=== PATIENT | male | born 1965 | race Hispanic/Latino ===

== ENCOUNTER 2021-11-03 08:40 | Emergency (ER) | payer SELFPAY ==
[2021-11-03] MEDS ORDERED: KETOROLAC 30 MG/ML INJ ONE (10:19)
[2021-11-03] MEDS ORDERED: DIAZEPAM 5 MG TABLET ONE (10:20)
--- NOTE | 2021-11-03 10:51 | RAD REPORT ---
EXAM DESCRIPTION: RAD - Ribs Right - 11/03/2021 10:43 am CLINICAL HISTORY: injury, pain COMPARISON: No comparisons FINDINGS: Mildly displaced right tenth rib fracture. Nondisplaced right eleventh rib fracture. No pn eumothorax is appreciated. IMPRESSION: Mildly displaced right tenth and nondisplaced right eleventh rib fracture. No pneumothor ax.
--- NOTE | 2021-11-03 11:11 | ER ---
Nurse's Notes [facility] Name: Broderick Bliss Age: 56 yrs Sex: Male : 1965 Arrival Date: 11/03/2021 Time: 08:41 Bed 9 Private MD: Diagnosis: Rib Fracture Presentation: 11/03 10:00 Chief complaint: Patient states: hit right side against a pool on Wednesday and he iw sneezed this morning and felt something and now he hurts. Coronavirus screen: At this time, the client does not indicate any symptoms associated with coronavirus-19. Ebola Screen: Patient negative for fever greater than or equal to 101.5 degrees Fahrenheit, and additional compatible Ebola Virus Disease symptoms Patient denies exposure to infectious person. Patient denies travel to an Ebola-affected area in the 21 days before illness onset. No symptoms or risks identified at this time. Initial Sepsis Screen: Does the patient meet any 2 criteria? No. Patient's initial sepsis screen is negative. Does the patient have a suspected source of infection? No. Patient's initial sepsis screen is negative. Risk Assessment: Do you want to hurt yourself or someone else? Patient reports no desire to harm self or others. Onset of symptoms was November 01, 2021. 10:00 Method Of Arrival: Ambulatory iw 10:00 Acuity: VICTORINO 4 iw Vital Signs: 11:16 BP 139 / 99; Pulse 72; Resp 18; Temp 97.9(O); Pulse Ox 96% on R/A; mh5 ED Course: 08:41 Patient arrived in ED. am2 09:40 Clay Enciso PA is PHCP. [facility] 09:40 Tomás Herrera MD is Attending Physician. [facility] 10:01 Triage completed. iw 10:01 Arm band placed on Patient placed. iw 10:13 Aura Bower, RN is Primary Nurse. iw 10:45 Ribs Right XRAY In Process Unspecified. EDMS Administered Medications: 10:19 Drug: Ketorolac 30 mg Route: IM; Site: right deltoid; iw 10:19 Drug: Valium (diazepam) 5 mg Route: PO; iw Outcome: 11:10 Discharge ordered by . danielle 11:29 Patient left the ED. iw Signatures: Dispatcher [employer] EDMS Clay Enciso PA PA jmm Williams, Irene, RN RN Katelynn Whiteside [facility] Maggie Steiner [facility]
--- NOTE | 2021-11-03 11:11 | EDPHYS ---
Physician Documentation [facility] Name: Broderick Bliss Age: 56 yrs Sex: Male : 1965 Arrival Date: 11/03/2021 Time: 08:41 Bed 9 Private MD: ED Physician Tomás Herrera HPI: 11/03 09:59 This 56 yrs old Male presents to ER via Ambulatory with complaints of rib pain.[facility] 09:59 The patient or guardian reports chest pain that is located primarily in the right [facility] lateral posterior chest. Onset: The symptoms/episode began/occurred acutely, 2 day(s) ago. The pain does not radiate. This is a 56-year-old male that presents emerged part with right-sided rib pain beginning after he hit the side of his chest wall against the edge of the pool. Patient states he had a sneeze prior to going to work and developed acute onset pain. Denies shortness of breath.. ROS: 09:59 Constitutional: Negative for fever, chills, and weight loss, Cardiovascular: Negative jm for chest pain, palpitations, and edema, Respiratory: Negative for shortness of breath, cough, wheezing, and pleuritic chest pain. 09:59 Back: Positive for pain with movement. 09:59 All other systems are negative. Exam: 09:59 Constitutional: This is a well developed, well nourished patient who is awake, alert, jmm and in no acute distress. Head/Face: atraumatic. Eyes: EOMI, no conjunctival erythema appreciated ENT: Moist Mucus Membranes Neck: Trachea midline, Supple Chest/axilla: Normal chest wall appearance and motion. Cardiovascular: Regular rate and rhythm. No edema appreciated Respiratory: Normal respirations, no respiratory distress appreciated Abdomen/GI: Non distended, soft 09:59 Skin: General appearance color normal MS/ Extremity: Moves all extremities, no obvious deformities appreciated, no edema noted to the lower extremities Neuro: Awake and alert Psych: Behavior is normal, Mood is normal, Patient is cooperative and pleasant 09:59 Back: Right posterior lateral rib pain on palpation. Vital Signs: 11:16 BP 139 / 99; Pulse 72; Resp 18; Temp 97.9(O); Pulse Ox 96% on R/A; mh5 MDM: 09:48 Patient medically screened. [facility] 11:10 Data reviewed: vital signs, nurses notes. Counseling: I had a detailed discussion with [facility] the patient and/or guardian regarding: the historical points, exam findings, and any diagnostic results supporting the discharge/admit diagnosis, radiology results, the need for outpatient follow up, to return to the emergency department if symptoms worsen or persist or if there are any questions or concerns that arise at home. 11/03 09:50 Order name: Ribs Right XRAY; Complete Time: 10:56 [facility] 11/03 11:05 Order name: INCENTIVE SPIROMETRY [facility] Administered Medications: 10:19 Drug: Ketorolac 30 mg Route: IM; Site: right deltoid; iw 10:19 Drug: Valium (diazepam) 5 mg Route: PO; iw Disposition Summary: 11/03/21 11:10 Discharge Ordered Location: Home [facility] Condition: Stable [facility] Diagnosis - Rib Fracture [facility] Followup: [facility] - With: Private Physician - When: 2 - 3 days - Reason: Recheck today's complaints, Continuance of care, Re-evaluation by your physician Discharge Instructions: - Discharge Summary Sheet [facility] - Rib Fracture [facility] - How to Use an Incentive Spirometer [facility] Forms: - Work release form [facility] - Medication Reconciliation Form [facility] - Thank You Letter [facility] - Antibiotic Education [facility] - Prescription Opioid Use [facility] Prescriptions: - Zanaflex 4 mg Oral Tablet - take 1 tablet by ORAL route every 8 hours As needed; 20 tablet; Refills: 0, [facility] Product Selection Permitted - Tylenol-Codeine #3 300 mg-30 mg Oral - take 1 tablet by ORAL route every 4-6 hours; 20 tablet; Refills: 0, Product [facility] Selection Permitted Signatures: Dispatcher [employer] Clay Adkins PA PA jmm Williams, Irene, RN RN iw
[2021-11-03 12:14] VITALS: BP 139/99; TEMP 97.9; O2SAT 96
== END 2021-11-03 11:29 | disposition home or self-care (01) ==
LOC: ER 08:40
DX: S22.41XA Multiple fractures of ribs, right side, initial encounter for closed fracture (principal)
CPT/HCPCS: 96372; 99283

== ENCOUNTER 2024-04-03 17:53 | Emergency (ER) | payer BC ==
--- OUTSIDE RECORDS SUMMARY | 2024-04-03 17:55 | XMS REPORT | Continuity of Care Document ---
Author Name Unknown Address [address] [place] [address] [facility] thconnect Address [address] [place] [address] Care Team Providers Care Field Contractor Name Role Phone Corinne Olson Attending Clinician Unavail able Payers Payer Name Policy Type Policy Number Effective Date Expirati on Date Source [facility] 6 [id number] 2022 00:00:00 [facility] Problems Condition Name Condition Details Condition Category Status Onset Date Resolution Date Last Treatment Date Treating Clinician Comments Source [id number] Mixed hyperlipid emia Problem [facility] [id number] Body mass index [BMI] 31.0-31.9, adult Problem [facility] [id number] Essential hypertensi on Problem [facility] [id number] Gastroesop hageal reflux disease without esophagiti s Problem [facility] [id number] Chronic fatigue Problem [facility] [id number] Vitamin D deficiency Problem [facility] [id number] PONCE (obstructi ve sleep apnea) Problem [facility] [id number] Other obesity due to excess calories Problem [facility] Social History Social Habit Start Date Stop Date Quantity Comments Source Sex Assigned At [facility] History of Tobacco Use [facility] Smoking Status Start Date Stop Date Source Former Smoker 2024-03-31 00:00:00 2024-03-31 00:00:00 [facility] Medications Ordered Medication Name Filled Medication Name Start Date Stop Date Current Medication? Ordering Clinician Indication Dosage Frequency Signature (SIG) Comments Components Source Atorvastati n Calcium 20 MG Atorvastati n Calcium 20 MG 12-30 00:00: 00 No 1{table t} QD Atorvastat in Calcium 20 MG Pantoprazol e Sodium 40 MG Pantoprazol e Sodium 40 MG 12-30 00:00: 00 No 1{table t} QD Pantoprazo le Sodium 40 MG Olmesartan Medoxomil 5 MG Olmesartan Medoxomil 5 MG 12-30 00:00: 00 No 2{table ts} QD Olmesartan Medoxomil 5 MG Albuterol Sulfate HFA 108 (90 Base) MCG/ACT Albuterol Sulfate HFA 108 (90 Base) MCG/ACT 10-28 00:00: 00 No 1{puff_ as_need ed} 6xD Albuterol Sulfate HFA 108 (90 Base) MCG/ACT PriLOSEC PriLOSEC No PriLOSEC Vital Signs Vital Name Observation Time Observation Value Comments S ource oximetry 2024-03-31 08:00:00 96 % Commo n [facility] respiratory rate 2024-03-31 08:00:00 16 /min [facility] blood pressure systolic 2024-03-31 08:00:00 148 mm[Hg] [facility] blood pressure diastolic 2024-03-31 08:00:00 90 mm[Hg] [facility] height 2024-03-31 08:00:00 66 [in_i] Commo n [facility] weight 2024-03-31 08:00:00 191.4 [lb_av] Co mmon [facility] temperature 2024-03-31 08:00:00 97.3 [degF] Com mon [facility] bmi 2024-03-31 08:00:00 30.89 kg/m2 Comm on [facility] height 2023-12-31 08:00:00 66 [in_i] Commo n [facility] weight 2023-12-31 08:00:00 187.8 [lb_av] Co mmon [facility] temperature 2023-12-31 08:00:00 98 [degF] Comm on [facility] bmi 2023-12-31 08:00:00 30.31 kg/m2 Comm on [facility] oximetry 2023-12-31 08:00:00 96 % Commo n [facility] respiratory rate 2023-12-31 08:00:00 18 /min Common [facility] blood pressure systolic 2023-12-31 08:00:00 141 mm[Hg] [facility] blood pressure diastolic 2023-12-31 08:00:00 81 mm[Hg] Common [facility] height 2023-10-29 08:00:00 66 [in_i] Commo n [facility] weight 2023-10-29 08:00:00 193 [lb_av] Comm on [facility] temperature 2023-10-29 08:00:00 97.9 [degF] Com mon [facility] bmi 2023-10-29 08:00:00 31.15 kg/m2 Comm on [facility] oximetry 2023-10-29 08:00:00 96 % Commo n [facility] respiratory rate 2023-10-29 08:00:00 18 /min [facility] blood pressure systolic 2023-10-29 08:00:00 130 mm[Hg] Common [facility] blood pressure diastolic 2023-10-29 08:00:00 90 mm[Hg] [facility] Encounters Start Date/Time End Date/Time Encounter Type Admission Type Attending Clinicians Care Facility Care Department Encounter ID Source 2024-03-31 08:32:00 Outpatient Corinne Olson [facility] [id number] [facility] 2024-03-29 09:00:01 Outpatient Corinne Olson [facility] [id number] [facility] 2024-01-04 15:04:00 Outpatient Corinne Olson [facility] [id number] [facility] 2023-12-28 10:04:01 Outpatient Corinne Olson [facility] [id number] [facility] 2023-10-27 09:17:01 Outpatient Corinne Olson [facility] [id number] [facility] 2023-10-26 14:52:00 Outpatient Corinne Olson [facility] [id number] [facility] 2023-10-12 08:46:00 Outpatient Corinne Olson [facility] [id number] [facility] 2024-03-31 00:00:00 2024-03-31 00:00:00 OFFICE VISIT ESTAB PT LEVEL 4 [facility] [id number] [facility] 2023-12-31 00:00:00 2023-12-31 00:00:00 (ESTPT) Establishe d Patient [facility] [id number] [facility] 2023-10-29 00:00:00 2023-10-29 00:00:00 OFFICE VISIT ESTAB PT LEVEL 4 [facility] [id number] [facility] Results Test Description Test Time Test Comments Results Result Co mments Source LIPID [id number] 00:00:00* Test Item Value Reference Range Interpretation Comme nts CALC LDL CHOL (test code = 50357-7) 131 MG/DL See_Comment H [Automated messa ge] The system which generated this result transmitted reference range: <100 MG/DL. The reference range was not used to interpret this result as normal/abnormal. CHOLESTEROL (test code = 2093-3) 216 MG/DL See_Comment H [Automated messa ge] The system which generated this result transmitted reference range: <200 MG/DL. The reference range was not used to interpret this result as normal/abnormal. HDL CHOLESTEROL (test code = 2085-9) 42 MG/DL See_Comment [Automated [employer] ge] The system which generated this result transmitted reference range: >39 MG/DL. The reference range was not used to interpret this result as normal/abnormal. RISK RATIO LDL/HDL (test code = 67267-4) 3.12 RATIO See_Comment [Automated message] The system which generated this result transmitted reference range: <3.55 RATIO. The reference range was not used to interpret this result as normal/abnormal. TRIGLYCERIDES (test code = 2571-8) 299 MG/DL See_Comment H [Automated [employer] ge] The system which generated this result transmitted reference range: <150 MG/DL. The reference range was not used to interpret this result as normal/abnormal.
--- NOTE | 2024-04-03 18:51 | RAD REPORT ---
EXAM: Foot Left 3 View HISTORY: r/o fb COMPARISON: None FINDINGS: Bones: No acute fracture identified. Alignment:No significant malalignment. Degenerative changes:None significant. Other: Tiny punctate calcifications or foreign bodies along the medial aspect of the left foot primar mark along the navicular and at the level of the medial cuneiform. IMPRESSION: No evidence of acute osseous abnormality involving the imaged foot. Small radiopaque densities in the medial foot could be debris or small calcifications. The area of interest is located more posterior so they are probably not acute.
[2024-04-03] MEDS ORDERED: HYDROCODONE/APAP 10/325 TAB ONE (19:39)
[2024-04-03] MEDS ORDERED: TDAP (DIPHTH,PERTUSS(ACELL),TET VAC) 0.5 ML VIAL IMVAC ONE (19:39)
[2024-04-03] MEDS ORDERED: LIDOCAINE 1% MPF 5 ML VIAL ONE (19:39)
--- NOTE | 2024-04-03 20:17 | EDPHYS ---
Physician Documentation [facility] Name: Broderick Bliss Age: 59 yrs Sex: Male : 1965 Arrival Date: 04/03/2024 Time: 17:53 Bed 10 Private MD: ED Physician Tomás Herrera HPI: 04/03 18:58 This 59 yrs old Male presents to ER via Wheelchair with complaints of Puncture kb Wound To Foot. 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 Denies any other injuries. . Historical: - Allergies: 18:06 No Known Allergies; cm10 - PMHx: 18:06 Hypertensive disorder; Hypercholesterolemia; cm10 - PSHx: 18:06 None; cm10 - Immunization history:: Adult Immunizations not up to date, Last tetanus immunization: unknown. - Infectious Disease History:: Denies. - Social history:: Smoking status: Patient denies any tobacco usage or history of. ROS: 18:56 Constitutional: As per HPI kb Exam: 19:02 Constitutional: This is a well developed, well nourished patient who is awake, alert, kb and in no acute distress. Head/Face: Normocephalic, atraumatic. ENT: Moist Mucous membranes Cardiovascular: Regular rate Respiratory: Respirations even and unlabored. No increased work of breathing. Talking in full sentences MS/ Extremity: Pulses equal, no cyanosis. Neurovascular intact. Full, normal range of motion. Neuro: Awake and alert, GCS 15, oriented to person, place, time, and situation. Moves all extremities. Normal gait. Vital Signs: 18:05 BP 129 / 92; Pulse 88; Resp 16; Temp 98.4; Pulse Ox 95% ; Weight 84.82 kg; Height 5 ft. cm10 5 in. ; Pain 9/10; 20:33 BP 118 / 78; Pulse 80; Resp 16; Temp 97.9(O); Pulse Ox 99% on R/A; Pain 4/10; tl4 18:05 Body Mass Index 31.12 (84.82 kg, 165.1 cm) cm10 18:05 Pain Scale: Adult cm10 20:33 Pain Scale: Adult tl4 Laceration: 20:15 Wound Repair of 2cm ( 0.8in ) subcutaneous laceration to medial aspect of left heel. kb Linear shaped.. Distal neuro/vascular/tendon intact. Anesthesia: Wound infiltrated with 4 mls of 1% lidocaine. Wound prep: Extensive cleansing with hibiclenz by me, Wound irrigation with saline by me. Skin closed with 3 4-0 Prolene using simple sutures and sterile technique. Patient tolerated well. MDM: 18:00 Patient medically screened. kb 18:59 Differential diagnosis: laceration, puncture, foreign body. Data reviewed: vital signs, kb nurses notes. Historians other than the Patient: Spouse/Significant Other: . 20:16 Counseling: I had a detailed discussion with the patient and/or guardian regarding the kb historical points, exam findings, and any diagnostic results supporting the discharge/admit diagnosis, radiology results, the need for outpatient follow up, a family practitioner, to return to the emergency department if symptoms worsen or persist or if there are any questions or concerns that arise at home. 04/03 18:04 Order name: Foot Left 3 View XRAY; Complete Time: 18:55 kb 04/03 18:04 Order name: Wound Care: clean wounds please; Complete Time: 19:37 kb 04/03 19:36 Order name: Dressing - Wound; Complete Time: 20:32 kb 04/03 19:36 Order name: Gloves, Sterile: size 6; Complete Time: 19:37 kb 04/03 19:36 Order name: Prolene, Sutures: 4.0; Complete Time: 19:37 kb 04/03 19:36 Order name: Setup Suture Tray; Complete Time: 19:37 kb Administered Medications: 19:56 Drug: Boostrix Tdap IM 0.5 ml IM once; as a single dose {Note: [employer] Lot [id number] Exp 04/08/2026 VIS 01/31/2021.} Route: IM; Site: right deltoid; 20:32 Follow up: Response: No adverse reaction tl4 19:56 Drug: [place] PO 10 mg-325 mg 1 tabs PO once Route: PO; tl4 20:32 Follow up: Response: No adverse reaction; Pain is decreased tl4 20:31 Drug: Lidocaine Infiltration (1 %) 1 vials 5 ml Infiltration once; to bedside {Note: tl4 administered by Celia Alvarado NP.} Volume: 5 ml; Route: Infiltration; 20:32 Follow up: Response: No adverse reaction tl4 Disposition Summary: 04/03/24 20:17 Discharge Ordered Notes: Location: Home kb Condition: Stable kb Diagnosis - Puncture wound without foreign body of foot kb - Laceration without foreign body of foot kb Followup: kb - With: Emergency Department - When: As needed - Reason: Worsening of condition Followup: kb - With: Private Physician - When: 2 - 3 days - Reason: Recheck today's complaints, Continuance of care, Re-evaluation by your physician Discharge Instructions: - Discharge Summary Sheet kb - Laceration Care, Adult, [id number] kb - Puncture Wound, [id number] kb Forms: - Medication Reconciliation Form kb - Antibiotic Education kb - Prescription Opioid Use kb - Patient Portal Instructions kb - Leadership Thank You Letter kb Prescriptions: - Cephalexin 500 mg Oral Capsule - take 1 capsule ORAL route every 8 hours for 10 days; 30 capsule; Refills: 0, kb Product Selection Permitted Signatures: Dispatcher [employer] EDCelia Antunez, LIANA-C ENGINEERING DESIGN MANAGER-Ariane Vera, RN RN cm10 Andres Bishop RN RN tl4
--- NOTE | 2024-04-03 20:17 | ER ---
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 Pt has puncture wound to left foot. Coronavirus screen: Client denies travel out of the [place] in the last 14 days. Ebola Screen: Patient denies travel to an Ebola-affected area in the 21 days before illness onset. No symptoms or risks identified at this time. Initial Sepsis Screen: Does the patient meet any 2 criteria? No. Patient's initial sepsis screen is negative. Does the patient have a suspected source of infection? No. Patient's initial sepsis screen is negative. Risk Assessment: Do you want to hurt yourself or someone else? Patient reports no desire to harm self or others. Onset of symptoms was April 03, 2024. 18:05 Method Of Arrival: Wheelchair cm10 18:05 Acuity: VICTORINO 4 cm10 Triage Assessment: 18:06 General: Appears in no apparent distress. comfortable, Behavior is calm, cooperative. cm10 Pain: Complains of pain in left foot. Neuro: No deficits noted. Level of Consciousness is awake, alert, obeys commands, Oriented to person, place, time, situation, Appropriate for age. Respiratory: No deficits noted. Airway is patent Respiratory effort is even, unlabored, Respiratory pattern is regular, symmetrical. Injury Description: Puncture sustained to left foot. Historical: - Allergies: 18:06 No Known Allergies; cm10 - PMHx: 18:06 Hypertensive disorder; Hypercholesterolemia; cm10 - PSHx: 18:06 None; cm10 - Immunization history:: Adult Immunizations not up to date, Last tetanus immunization: unknown. - Infectious Disease History:: Denies. - Social history:: Smoking status: Patient denies any tobacco usage or history of. Screenin:34 [facility] ED Fall Risk Assessment (Adult) History of falling in the last 3 months, tl4 including since admission No falls in past 3 months (0 pts) Confusion or Disorientation No (0 pts) Intoxicated or Sedated No (0 pts) Impaired Gait No (0 pts) Mobility Assist Device Used No (0 pt) Altered Elimination No (0 pt) Score/Fall Risk Level 0 - 2 = Low Risk Oriented to surroundings, Maintained a safe environment, Educated pt \T\ family on fall prevention, incl call for assistance when getting out of bed, Assessed \T\ reinforced patient's understanding of fall precautions. Abuse screen: Denies threats or abuse. Denies injuries from another. Nutritional screening: No deficits noted. Tuberculosis screening: No symptoms or risk factors identified. Assessment: 20:32 General: Appears in no apparent distress. Behavior is calm, cooperative. Pain: tl4 Complains of pain in left foot. Neuro: Level of Consciousness is awake, alert, obeys commands, Oriented to person, place, time, situation. Cardiovascular: Capillary refill < 3 seconds Patient's skin is warm and dry. Respiratory: Airway is patent Respiratory effort is even, unlabored, Respiratory pattern is regular, symmetrical. GI: No signs and/or symptoms were reported involving the gastrointestinal system. : No signs and/or symptoms were reported regarding the genitourinary system. EENT: No signs and/or symptoms were reported regarding the EENT system. Derm: No signs and/or symptoms reported regarding the dermatologic system. Musculoskeletal: No signs and/or symptoms reported regarding the musculoskeletal system. Injury Description: Puncture sustained to left foot is through and through. Vital Signs: 18:05 BP 129 / 92; Pulse 88; Resp 16; Temp 98.4; Pulse Ox 95% ; Weight 84.82 kg; Height 5 ft. cm10 5 in. ; Pain 9/10; 20:33 BP 118 / 78; Pulse 80; Resp 16; Temp 97.9(O); Pulse Ox 99% on R/A; Pain 4/10; tl4 18:05 Body Mass Index 31.12 (84.82 kg, 165.1 cm) cm10 18:05 Pain Scale: Adult cm10 20:33 Pain Scale: Adult tl4 ED Course: 17:56 Patient arrived in ED. mg5 18:00 [facility]. kb 18:00 Tomás Herrera MD is Attending Physician. kb 18:06 Triage completed. cm10 18:07 Arm band placed on right wrist. Patient placed in waiting room. cm10 18:33 Foot Left 3 View XRAY In Process Unspecified. EDMS 19:26 Andres Bishop, RN is Primary Nurse. tl4 20:34 Patient has correct armband on for positive identification. Bed in low position. Call tl4 light in reach. Side rails up X 1. Adult w/ patient. Provided Education on: ed process, call whyte. Client placed on continuous cardiac and pulse oximetry monitoring. NIBP monitoring applied. Door closed. Noise minimized. Lights dimmed. Moved to private room. Warm blanket given. 20:35 No provider procedures requiring assistance completed. Patient did not have IV access tl4 during this emergency room visit. Wound care: to puncture located on left foot was dressed with 4X4s, cling, Patient tolerated well. Administered Medications: 19:56 Drug: Boostrix Tdap IM 0.5 ml IM once; as a single dose {Note: COM DEV Lot [id number] Exp 04/08/2026 VIS 01/31/2021.} Route: IM; Site: right deltoid; 20:32 Follow up: Response: No adverse reaction tl4 19:56 Drug: [place] PO 10 mg-325 mg 1 tabs PO once Route: PO; tl4 20:32 Follow up: Response: No adverse reaction; Pain is decreased tl4 20:31 Drug: Lidocaine Infiltration (1 %) 1 vials 5 ml Infiltration once; to bedside {Note: tl4 administered by Celia Alvarado NP.} Volume: 5 ml; Route: Infiltration; 20:32 Follow up: Response: No adverse reaction tl4 Medication: 20:34 Vaccine Information Statement (VIS) provided today. Questions and/or concerns tl4 addressed. VIS edition date: January 31, 2021. Outcome: 20:17 Discharge ordered by MD. boucher 20:35 Discharged to home ambulatory, with family, tl4 20:35 Condition: stable 20:35 Discharge instructions given to patient, Instructed on discharge instructions, follow up and referral plans. medication usage, wound care, Demonstrated understanding of instructions, follow-up care, medications, wound care, Prescriptions given X 1, 20:48 Patient left the ED. tl4 Signatures: Dispatcher [employer] EDDE Celia Alvarado, Ariane Euceda RN RN cm10 Zunilda Chong mg5 Logdaregulo, Andres, RN RN tl4
[2024-04-03 21:50] VITALS: BP 118/78; TEMP 97.9; O2SAT 99
== END 2024-04-03 20:48 | disposition home or self-care (01) ==
LOC: ER 17:53
DX: S91.332A Puncture wound without foreign body, left foot, initial encounter (principal); S91.312A Laceration without foreign body, left foot, initial encounter
CPT/HCPCS: 73630; 96372; 99284; 12041; J2001